=== PATIENT | male | born 1955 | race Caucasian/White ===

== ENCOUNTER 2018-11-12 14:02 | Emergency (ER) | payer OTHER ==
[2018-11-12] MEDS ORDERED: Cyclobenzaprine 10 MG TAB ONE (16:09)
[2018-11-12] MEDS ORDERED: Acetaminophen 500 MG TAB ONE (16:09)
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
[2018-11-12] MEDS ORDERED: Bacitracin Zinc 1 Packet ONE (16:14)
== END 2018-11-12 16:25 | disposition home or self-care (01) ==
LOC: SCSER 14:02
DX: S20.212A Contusion of left front wall of thorax, initial encounter (principal); S50.312A Abrasion of left elbow, initial encounter; W19.XXXA Unspecified fall, initial encounter